=== PATIENT | female | born 1980 | race Caucasian/White ===

== ENCOUNTER → 2024-07-30 13:42 | Outpatient (CLI) | payer OTHER, SELFPAY ==
--- NOTE | 2024-07-30 13:46 | DI.RAD.S_ITS ---
PROCEDURE: XR TOE RT MIN 2V INDICATIONS: contusion pain right pink MTP joint TECHNIQUE: Three views of the 5th toe COMPARISON: None. FINDINGS: Bones: No fractures or dislocations. No suspicious bony lesions. Soft tissues: No suspicious soft tissue densities. IMPRESSION: Soft tissue swelling without fracture or foreign body Approved by: Ottoniel Lal M.D. on 07/30/2024 at 14:26
== END ==
PROVIDERS: PCP Nurse Practitioner; Referring Provider Physician Assistant Medical; Visit Provider Physician Assistant Medical
DX: S90.121A Contusion of right lesser toe(s) without damage to nail, initial encounter (principal); M79.89 Other specified soft tissue disorders; X58.XXXA Exposure to other specified factors, initial encounter
CPT/HCPCS: 73660